=== PATIENT | female | born 1940 | race Caucasian/White ===

== ENCOUNTER 2021-12-01 11:02 | Emergency (ER) | payer MEDICARE, OTHER ==
[~2021-12-01] VITALS: Ht 172.7 cm; Wt 76.6 kg
[2021-12-01 11:16] LABS: BILIRUBIN,URINE NEGATIVE (NEGATIVE); CLARITY,URINE CLEAR; COLOR,URINE YELLOW; GLUCOSE, URINE (UA) NEGATIVE (NEGATIVE); KETONES,URINE NEGATIVE (NEGATIVE); LEUKOCYTE ESTERASE ,URINE 2+ (NEGATIVE); NITRITE,URINE NEGATIVE (NEGATIVE); PROTEIN,URINE NEGATIVE (NEGATIVE)
[2021-12-01 11:18] LABS: BASOPHILS # (AUTO) 0.1 10^3/uL (0.0-0.1); BASOPHILS % (AUTO) 1 % (0-10); EOSINOPHILS # (AUTO) 0.2 10^3/uL (0.0-0.3); EOSINOPHILS % (AUTO) 3 % (0-10); HEMATOCRIT 41 % (35-52); HEMOGLOBIN 14.3 g/dL (11.5-16.0); LYMPHOCYTES # (AUTO) 2.4 10^3/uL (1.0-4.0); LYMPHOCYTES % (AUTO) 35 % (12-44); MEAN CORPUSCULAR HEMOGLOBIN 31 pg (25-34); MEAN CORPUSCULAR HGB CONC 35 g/dL (32-36); MEAN CORPUSCULAR VOLUME 89 fL (80-99); MEAN PLATELET VOLUME 11.1 fL (9.0-12.2); MONOCYTES # (AUTO) 0.7 10^3/uL (0.0-1.0); MONOCYTES % (AUTO) 10 % (0-12); NEUTROPHILS # (AUTO) 3.5 10^3/uL (1.8-7.8); NEUTROPHILS % (AUTO) 51 % (42-75); PLATELET COUNT 263 10^3/uL (130-400); WHITE BLOOD COUNT 6.9 10^3/uL (4.3-11.0)
[2021-12-01 11:26] LABS: BACTERIA,URINE TRACE /HPF; SQUAMOUS EPITHELIAL CELL,UR RARE /HPF
[2021-12-01 11:52] LABS: BILIRUBIN,TOTAL 0.9 MG/DL (0.1-1.0); CALCIUM 9.6 MG/DL (8.5-10.1); CREATININE SERUM 0.71 MG/DL (0.60-1.30); POTASSIUM 3.9 MMOL/L (3.6-5.0)
[2021-12-01 11:53] LABS: ALBUMIN 4.3 GM/DL (3.2-4.5); TOTAL PROTEIN 6.8 GM/DL (6.4-8.2)
[2021-12-01] MEDS ORDERED: DOXYCYCLINE 100 MG (VIBRAMYCIN) TABLET PO SCH (12:00)
[2021-12-01] MEDS ORDERED: NS IV 1000 ML 1,000 ML IV SCH (12:00)
[2021-12-01] MEDS ORDERED: DOXY100T2 PO (12:06)
--- NOTE | 2021-12-01 12:06 | ED GU-Female ---
General Chief Complaint: - Reproductive Stated Complaint: AMS Nursing Triage Note: Patient presents to the ED via EMS with c/o urinary frequency, confusion, and pelvic pain. Reports symptoms began yesterday. Patient is alert and oriented x4 upon arrival. Reports she was told to come to the ED by her PCP. Source: patient Exam Limitations: no limitations History of Present Illness Date Seen by Provider: Dec 01, 2021 Time Seen by Provider: 11:20 Initial Comments Patient is 71-year-old female who presents with vague headache and dizziness starting yesterday with pelvic pain and urinary frequency. No urinary urgency dysuria, fever chills, nausea vomiting or sweats. No flank pain or hematuria. Patient is A&O x4. No recent urinary tract infections or antibiotics Timing/Duration: yesterday Severity/Quality: moderate Location: other Radiation: other Activities at Onset: other Sexual Felt History: other Modifying Factors: Improves With Other Associated Symptoms: other Allergies and Home Medications Allergies Coded Allergies: cephalexin (Verified Allergy, Unknown, 12/01/21) Patient Home Medication List Home Medication List Reviewed: Yes Review of Systems Review of Systems Constitutional: see HPI EENTM: see HPI Respiratory: see HPI Cardiovascular: see HPI Gastrointestinal: see HPI Genitourinary: see HPI Musculoskeletal: see HPI Psychiatric/Neurological: See HPI Endocrine: See HPI Hematologic/Lymphatic: See HPI All Other Systemes Reviewed Negative Unless Noted: Yes Past Nyecyco-Wxzhmc-Jdnhcp Hx Patient Social History Tobacco Use?: Yes Substance use?: No Alcohol Use?: No Pt feels they are or have been: No Immunizations Up To Date Influenza Vaccine Up-to-Date: Yes; Up-to-Date First/Initial COVID19 Vaccinat: Yes 2020 Second COVID19 Vaccination Ok: Yes 2020 COVID19 Vaccine Pig Sticker: Moderna Past Medical History Surgery/Hospitalization HX: HTN; High Cholesterol; GERD; Hysterectomy; Lumpectomy Physical Exam Vital Signs Vital Signs - First Documented 12/01/21 11:11 Temp 36.8 Pulse 93 Resp 14 B/P (MAP) 171/94 (119) Pulse Ox 97 O2 Delivery Room Air Capillary Refill : Less Than 3 Seconds Height, Weight, BMI Height: '" Weight: lbs. oz. kg; 25.00 BMI Method: General Appearance: WD/WN, no apparent distress HEENT: PERRL/EOMI Cardiovascular: regular rate, rhythm Respiratory: lungs clear Gastrointestinal: non tender, soft Back: no CVA tenderness Extremities: non-tender, normal inspection Neurologic/Psychiatric: alert, oriented x 3 Focused Exam Sepsis Stage: Ruled Out Progress/Results/Core Measures Suspected Sepsis SIRS Temperature: Pulse: 93 Respiratory Rate: 14 Laboratory Tests 12/01/21 11:10: White Blood Count 6.9 Blood Pressure 171 /94 Mean: 119 Laboratory Tests 12/01/21 11:10: Platelet Count 263 12/01/21 11:24: Creatinine 0.71, Total Bilirubin 0.9 Results/Orders Lab Results Laboratory Tests Test 12/01/21 11:10 12/01/21 11:24 Range/Units White Blood Count 6.9 4.3-11.0 10^3/uL Red Blood Count 4.66 3.80-5.11 10^6/uL Hemoglobin 14.3 11.5-16.0 g/dL Hematocrit 41 35-52 % Mean Corpuscular Volume 89 80-99 fL Mean Corpuscular Hemoglobin 31 25-34 pg Mean Corpuscular Hemoglobin Concent 35 32-36 g/dL Red Cell Distribution Width 12.2 10.0-14.5 % Platelet Count 263 130-400 10^3/uL Mean Platelet Volume 11.1 9.0-12.2 fL Immature Granulocyte % (Auto) 0 % Neutrophils (%) (Auto) 51 42-75 % Lymphocytes (%) (Auto) 35 12-44 % Monocytes (%) (Auto) 10 0-12 % Eosinophils (%) (Auto) 3 0-10 % Basophils (%) (Auto) 1 0-10 % Neutrophils # (Auto) 3.5 1.8-7.8 10^3/uL Lymphocytes # (Auto) 2.4 1.0-4.0 10^3/uL Monocytes # (Auto) 0.7 0.0-1.0 10^3/uL Eosinophils # (Auto) 0.2 0.0-0.3 10^3/uL Basophils # (Auto) 0.1 0.0-0.1 10^3/uL Immature Granulocyte # (Auto) 0.0 0.0-0.1 10^3/uL Urine Color YELLOW Urine Clarity CLEAR Urine pH 6.0 5-9 Urine Specific [place] 1.010 L 1.016-1.022 Urine Protein NEGATIVE NEGATIVE Urine Glucose (UA) NEGATIVE NEGATIVE Urine Ketones NEGATIVE NEGATIVE Urine Nitrite NEGATIVE NEGATIVE Urine Bilirubin NEGATIVE NEGATIVE Urine Urobilinogen 0.2 < = 1.0 MG/DL Urine Leukocyte Esterase 2+ H NEGATIVE Urine RBC (Auto) NEGATIVE NEGATIVE Urine RBC NONE /HPF Urine WBC 10-25 H /HPF Urine Squamous Epithelial Cells RARE /HPF Urine Crystals NONE /LPF Urine Bacteria TRACE /HPF Urine Casts NONE /LPF Urine Mucus NEGATIVE /LPF Urine Culture Indicated YES Sodium Level 144 135-145 MMOL/L Potassium Level 3.9 3.6-5.0 MMOL/L Chloride Level 106 98-107 MMOL/L Carbon Dioxide Level 26 21-32 MMOL/L Anion Gap 12 5-14 MMOL/L Blood Urea Nitrogen 13 7-18 MG/DL Creatinine 0.71 0.60-1.30 MG/DL Estimat Glomerular Filtration Rate 85 BUN/Creatinine Ratio 18 Glucose Level 106 H 70-105 MG/DL Calcium Level 9.6 8.5-10.1 MG/DL Corrected Calcium 9.4 8.5-10.1 MG/DL Total Bilirubin 0.9 0.1-1.0 MG/DL Aspartate Amino Transf (AST/SGOT) 14 5-34 U/L Alanine Aminotransferase (ALT/SGPT) 10 0-55 U/L Alkaline Phosphatase 76 40-136 U/L Total Protein 6.8 6.4-8.2 GM/DL Albumin 4.3 3.2-4.5 GM/DL My Orders Orders - PEEWEE HODGE DO Cbc With Automated Diff (12/01/21 11:08) Comprehensive Metabolic Panel (12/01/21 11:08) Ua Culture If Indicated (12/01/21 11:08) Straight Cath (Urinary) (12/01/21 11:08) Urine Culture (12/01/21 11:10) Doxycycline Hyclate Tablet (Vibramycin T (12/01/21 12:00) Ns Iv 1000 Ml (Sodium Chloride 0.9%) (12/01/21 12:00) Vital Signs/I&O 12/01/21 11:11 Temp 36.8 Pulse 93 Resp 14 B/P (MAP) 171/94 (119) Pulse Ox 97 O2 Delivery Room Air Capillary Refill : Less Than 3 Seconds Blood Pressure Mean: 119 Departure Impression Primary Impression: Urinary tract infection Disposition: 01 HOME, SELF-CARE Condition: Stable Departure-Patient Inst. Decision time for Depature: 12:05 Referrals: NO,LOCAL PHYSICIAN (PCP) Primary Care Physician Patient Instructions: Urinary Tract Infection, Adult (DC) Add. Discharge Instructions: You were evaluated the emergency department for dizziness, headache and urinary frequency. Your symptoms are consistent with a urinary tract infection. Please increase fluids and take newly prescribed antibiotics as directed. Follow-up with your PCP in 3 to 5 days for reevaluation. Return to the ED if new or worsening symptoms All discharge instructions reviewed with patient and/or family. Voiced understanding. Scripts Doxycycline Hyclate (Doxycycline Hyclate) 100 Mg Tablet 100 MG PO BID for 10 Days, #20 TAB 0 Refills Prov: PEEWEE HODGE DO 12/01/21 PEEWEE HODGE DO Dec 01, 2021 12:06
[2021-12-01 12:40] VITALS: BP 158/87
== END 2021-12-01 12:46 | disposition home or self-care (01) ==
LOC: ER FS 11:07
DX: N39.0 Urinary tract infection, site not specified (principal)
CPT/HCPCS: 36415; 80053; 81000; 85025; 87077; 87088; 87186; 99283